=== PATIENT | male | born 1995 | race Caucasian/White ===

== ENCOUNTER 2018-07-20 16:31 | Emergency (ER) | payer OTHER ==
[~2018-07-20] VITALS: Ht 182.9 cm; Wt 79.0 kg
[2018-07-20 16:45] VITALS: BP 135/90
[2018-07-20] MEDS ORDERED: DIPH,PERTUSS(ACELL),TET VAC/PF 0.5 ML IM-VACC ONE (17:00)
[2018-07-20] MEDS ORDERED: LIDOCAINE-MPF 1%, 5ML INFIL ONE (17:00)
--- NOTE | 2018-07-20 17:26 | NUR ---
TETANUS HELD D/T PT CURRENT-WITHIN FIVE YEARS.
[2018-07-20] MEDS ORDERED: BACITRACIN ZINC OINT 500U/GM, 0.9 GM ONE (17:54)
== END 2018-07-20 17:59 | disposition home or self-care (01) ==
LOC: EDBD 16:31 → ED 17:35
DX: S09.8XXA Other specified injuries of head, initial encounter (principal); S01.81XA Laceration without foreign body of other part of head, initial encounter; X58.XXXA Exposure to other specified factors, initial encounter; Y93.89 Activity, other specified; Y92.89 Other specified places as the place of occurrence of the external cause; Y99.8 Other external cause status
CPT/HCPCS: 12011; 99283